=== PATIENT | female | born 1995 | race Caucasian/White ===

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

== ENCOUNTER 2017-10-12 18:38 | Emergency (ER) | payer BC ==
[~2017-10-12] VITALS: Ht 157.5 cm; Wt 60.5 kg
[2017-10-12 18:44] VITALS: BP 128/72; TEMP 97.9
[2017-10-12 19:10] LABS: COLLECTION METHOD CLEAN CATCH
[2017-10-12 19:24] LABS: HEMATOCRIT 39.6 % (35.0-45.0); HEMOGLOBIN 13.4 g/dl (12.0-15.0); MEAN CELL VOLUME 90 fl (80.0-95.0); MEAN CORPUSCULAR HEMOGLOBIN 30 pg (26.0-32.0); MEAN CORPUSCULAR HGB CONC 34 g/dl (33.0-37.0); MEAN PLATELET VOLUME 10.9 fl (7.4-10.4); PLATELET COUNT 185 K/mm3 (130-400); RED BLOOD COUNT 4.42 M/mm3 (4.10-5.30); REDCELL DISTRIBUTION WIDTH-CV 11.9 % (11.5-14.5)
[2017-10-12 19:32] LABS: ALBUMIN 5.1 gm/dL (3.5-5.0); BILIRUBIN,TOTAL 0.5 mg/dL (0.0-1.0); C-REACTIVE PROTEIN 0.7 mg/dL (0.0-0.9); CALCIUM 9.5 mg/dL (8.4-10.2); CREATININE, serum 0.49 mg/dL (0.52-1.25); POTASSIUM 3.8 mmol/L (3.4-5.0); TOTAL PROTEIN 8.8 gm/dL (6.4-8.2)
[2017-10-12 19:45] LABS: PH 6 (5-8); URINE APPEARANCE Clear; URINE BILIRUBIN Negative (NEGATIVE); URINE BLOOD Negative (NEGATIVE); URINE COLOR Yellow; URINE GLUCOSE Negative (NEGATIVE); URINE KETONE Negative (NEGATIVE); URINE LEUKOCYTE ESTERASE Negative (NEGATIVE); URINE NITRATE Negative (NEGATIVE); URINE PROTEIN(semi-quant) Negative (NEGATIVE); URINE UROBILINOGEN Negative (NEGATIVE)
[2017-10-12 19:46] LABS: SQUAMOUS EPITHELIAL 0-2 /hpf
[2017-10-12 20:23] VITALS: PULSE 70
[2017-10-12 21:39] LABS: BAND 10 % (0-10); EOSINOPHIL 3 % (0-4); LYMPHOCYTE 68 % (20.0-51.0); NEUTROPHILS 16 % (42.0-75.2)
[2017-10-12 21:40] LABS: PLATELET ESTIMATE NORMAL (NORMAL)
[2017-10-13] MEDS ORDERED: COLACE 100100 MG/CAP PO (15:42)
[2017-10-13] MEDS ORDERED: PERCOCET 325 MG1 TA2 PO (15:42)
[2017-10-13] MEDS ORDERED: MOTRIN 600600 MG/TAB PO (15:42)
== END 2017-10-12 20:24 | disposition home or self-care (01) ==
LOC: COL.ER 18:38
PROVIDERS: Nurse Practitioner
DX: R10.33 Periumbilical pain (principal); Z90.49 Acquired absence of other specified parts of digestive tract
CPT/HCPCS: J1170; J2405; J7030

== ENCOUNTER 2017-10-13 10:59 | Day surgery (SDC) | payer BC ==
[2017-10-13] VITALS (9 sets, daily range): BP systolic 111–124; BP diastolic 62–78; PULSE 73–99; TEMP 97.8–98.3
[~2017-10-13] VITALS: Ht 157.5 cm; Wt 60.5 kg
[2017-10-13 12:48] LABS: HEMATOCRIT 39.1 % (35.0-45.0); HEMOGLOBIN 13.1 g/dl (12.0-15.0); MEAN CELL VOLUME 91 fl (80.0-95.0); MEAN CORPUSCULAR HEMOGLOBIN 30 pg (26.0-32.0); MEAN CORPUSCULAR HGB CONC 34 g/dl (33.0-37.0); MEAN PLATELET VOLUME 10.8 fl (7.4-10.4); PLATELET COUNT 183 K/mm3 (130-400); RED BLOOD COUNT 4.31 M/mm3 (4.10-5.30); REDCELL DISTRIBUTION WIDTH-CV 11.9 % (11.5-14.5)
[2017-10-13 12:56] LABS: ALBUMIN 4.7 gm/dL (3.5-5.0); BILIRUBIN,TOTAL 0.7 mg/dL (0.0-1.0); CALCIUM 9.3 mg/dL (8.4-10.2); CREATININE, serum 0.55 mg/dL (0.52-1.25); POTASSIUM 3.9 mmol/L (3.4-5.0); TOTAL PROTEIN 8.3 gm/dL (6.4-8.2)
[2017-10-13 12:58] LABS: C-REACTIVE PROTEIN 0.5 mg/dL (0.0-0.9)
[2017-10-13 13:28] LABS: BAND 3 % (0-10); BASOPHIL 2 % (0-2); EOSINOPHIL 1 % (0-4); LYMPHOCYTE 53 % (20.0-51.0); NEUTROPHILS 35 % (42.0-75.2); PLATELET ESTIMATE NORMAL (NORMAL)
[2017-10-13 13:29] LABS: HYPOCHROMIA 1+
[2017-10-13] MEDS ORDERED: MOTRIN 600600 MG/TAB PO (15:42)
[2017-10-13] MEDS ORDERED: PERCOCET 325 MG1 TA2 PO (15:42)
[2017-10-13] MEDS ORDERED: COLACE 100100 MG/CAP PO (15:42)
[2017-10-14 02:23] VITALS: BP 108/52; PULSE 69; TEMP 98.2
[2017-10-14 05:13] VITALS: BP 109/62; PULSE 76; TEMP 98.1
[2017-10-14 09:54] VITALS: BP 102/62; PULSE 73; TEMP 99.4
== END 2017-10-14 13:16 | disposition home or self-care (01) ==
LOC: COL.ER 10:59 → SURG 14:39 → SDCO 14:39
PROVIDERS: Emergency Medicine
DX: K35.80 Unspecified acute appendicitis (principal); Z90.49 Acquired absence of other specified parts of digestive tract
CPT/HCPCS: OP; J0330; J1100; J1170; J1885; J2405; J2550; J2704; J3010; J7030; J7120; Q9967

== ENCOUNTER 2018-09-20 08:15 | Emergency (ER) | payer BC ==
[~2018-09-20] VITALS: Ht 157.5 cm; Wt 65.7 kg
[~2018-09-20 08:15] MED LIST changes: +COLACE 100100 MG/CAP PO; +MOTRIN 600600 MG/TAB PO
[2018-09-20 08:18] VITALS: TEMP 99.1
[2018-09-20 09:10] LABS: BASO # 0.1 (0.0-0.2); BASO % 0.9 % (0.0-2.0); EOS # 0.1 (0.0-0.7); EOS % 1.2 % (0-4.0); GRAN # 3.9 (1.4-6.5); GRAN % 58.1 % (42.2-75.2); HEMATOCRIT 42.1 % (35.0-45.0); HEMOGLOBIN 14.5 g/dl (12.0-15.0); LYMPH # 2.2 (1.2-3.4); MEAN CELL VOLUME 88 fl (80.0-95.0); MEAN CORPUSCULAR HEMOGLOBIN 30 pg (26.0-32.0); MEAN CORPUSCULAR HGB CONC 34 g/dl (33.0-37.0); MEAN PLATELET VOLUME 10.8 fl (7.4-10.4); MONO # 0.4 (0.1-0.6); MONO % 6.5 % (1.7-9.3); PLATELET COUNT 210 K/mm3 (130-400); RED BLOOD COUNT 4.81 M/mm3 (4.10-5.30); REDCELL DISTRIBUTION WIDTH-CV 12.2 % (11.5-14.5)
[2018-09-20 09:18] LABS: ALANINE AMINOTRANSFERASE 10 U/L (9-52); ALBUMIN 4.8 gm/dL (3.5-5.0); ALKALINE PHOSPHATASE 79 U/L (50-136); ANION GAP 11 mmol/L (7-16); AST,SGOT 27 U/L (15-37); BILIRUBIN,TOTAL 0.9 mg/dL (0.0-1.0); BLOOD UREA NITROGEN 10 mg/dL (7-17); CALCIUM 9.6 mg/dL (8.4-10.2); CARBON DIOXIDE 23 mmol/L (22-30); CHLORIDE 105 mmol/L (98-107); CREATININE, serum 0.49 mg/dL (0.52-1.25); GLUCOSE 99 mg/dL (74-106); LIPASE 41 U/L (23-300); POTASSIUM 4.1 mmol/L (3.4-5.0); SODIUM 139 mmol/L (137-145); TOTAL PROTEIN 8.8 gm/dL (6.4-8.2)
[2018-09-20 09:20] LABS: C-REACTIVE PROTEIN < 0.5 mg/dL (0.0-0.9)
[2018-09-20] MEDS ORDERED: ZOFRAN ODT4 MG PO (09:24)
[2018-09-20 11:09] LABS: COLLECTION METHOD CLEAN CATCH
[2018-09-20 11:35] VITALS: BP 109/72; PULSE 72
[2018-09-20 11:43] LABS: MUCOUS Present /lpf; PH 6 (5-8); URINE APPEARANCE Hazy; URINE BACTERIA None Seen /hpf; URINE BILIRUBIN Negative (NEGATIVE); URINE BLOOD Negative (NEGATIVE); URINE COLOR Yellow; URINE GLUCOSE Negative (NEGATIVE); URINE KETONE Negative (NEGATIVE); URINE LEUKOCYTE ESTERASE Negative (NEGATIVE); URINE NITRATE Negative (NEGATIVE); URINE PROTEIN(semi-quant) Negative (NEGATIVE); URINE RBC 0-2 /hpf; URINE UROBILINOGEN Negative (NEGATIVE)
== END 2018-09-20 11:59 | disposition home or self-care (01) ==
LOC: COL.ER 08:15
PROVIDERS: Emergency Medicine
DX: K52.9 Noninfective gastroenteritis and colitis, unspecified (principal); Z90.49 Acquired absence of other specified parts of digestive tract; Z90.89 Acquired absence of other organs
CPT/HCPCS: J2550; J7030

== ENCOUNTER 2019-08-13 17:19 | Emergency (ER) | payer BC ==
[~2019-08-13] VITALS: Ht 157.5 cm; Wt 67.7 kg
[~2019-08-13 17:19] MED LIST changes: +ZOFRAN ODT4 MG PO
[2019-08-13 17:40] VITALS: BP 119/73
[2019-08-13 19:19] LABS: COLLECTION METHOD CLEAN CATCH
[2019-08-13 19:27] LABS: MUCOUS Present /lpf; PH 6 (5-8); URINE APPEARANCE Hazy; URINE BACTERIA None Seen /hpf; URINE BILIRUBIN Negative (NEGATIVE); URINE BLOOD Negative (NEGATIVE); URINE COLOR Yellow; URINE GLUCOSE Negative (NEGATIVE); URINE KETONE 2+ (NEGATIVE); URINE LEUKOCYTE ESTERASE Trace (NEGATIVE); URINE NITRATE Negative (NEGATIVE); URINE PROTEIN(semi-quant) Negative (NEGATIVE); URINE RBC 0-2 /hpf
[2019-08-13 20:38] VITALS: PULSE 116; TEMP 98.4
[2019-08-13] MEDS ORDERED: TAMIFLU 75MG75 MG PO (20:41)
== END 2019-08-13 20:57 | disposition home or self-care (01) ==
LOC: COL.ER 17:19
PROVIDERS: Emergency Medicine
DX: J11.1 Influenza due to unidentified influenza virus with other respiratory manifestations (principal); Z90.49 Acquired absence of other specified parts of digestive tract

== ENCOUNTER 2020-02-17 07:38 | Inpatient (IN) | payer BC ==
[~2020-02-17] VITALS: Ht 154.9 cm; Wt 76.8 kg
[2020-02-17] VITALS (35 sets, daily range): BP systolic 104–151; BP diastolic 56–91; PULSE 59–140; TEMP 98.4–98.8
[~2020-02-17 07:38] MED LIST changes: +TAMIFLU 75MG75 MG PO
--- NOTE | 2020-02-17 07:45 | NUR ---
Pt here for scheduled, elective induction of labor. Pt oriented to room and to EFM. 39.1 weeks gestation, G2L1. GBS negative. Pt to EFM. IV started to left wrist x 1 attempt, blood drawn from IV site and then LR infusing without difficulty. Assessment complete and consents signed. complicated with anemia, pt taking po iron daily. FHR reactive, irregular contractions noted. SVE: 350/-3. 0830: Pitocin started at 2mu per order.
[2020-02-17] MEDS ORDERED: NATURAL IRON65 MG PO (08:13)
[2020-02-17] MEDS ORDERED: PRENATAL (08:13)
--- NOTE | 2020-02-17 08:48 | NUR ---
Dr Hand here and at bedside. US performed, vertex position. SVE: /-3, AROM, clear fluid noted.
[2020-02-17 08:52] LABS: BASO # 0.1 (0.0-0.2); BASO % 0.7 % (0.0-2.0); EOS # 0.1 (0.0-0.7); EOS % 0.8 % (0-4.0); GRAN # 4.3 (1.4-6.5); GRAN % 57.2 % (42.2-75.2); HEMATOCRIT 33.2 % (37.0-47.0); HEMOGLOBIN 10.6 g/dl (12.5-16.0); LYMPH # 2.5 (1.2-3.4); LYMPH % 33.6 % (20.0-51.0); MEAN CELL VOLUME 85 fl (80.0-100.0); MEAN CORPUSCULAR HEMOGLOBIN 27 pg (27.0-31.0); MEAN CORPUSCULAR HGB CONC 32 g/dl (33.0-37.0); MEAN PLATELET VOLUME 12.4 fl (7.4-10.4); MONO # 0.5 (0.1-0.6); PLATELET COUNT 149 K/mm3 (130-400); RED BLOOD COUNT 3.93 M/mm3 (4.10-5.30); REDCELL DISTRIBUTION WIDTH-CV 14.8 % (11.5-14.5)
--- NOTE | 2020-02-17 09:55 | NUR ---
Pt requesting epidural. [employer] here. IVF bolus started. 1032:Pt up to bathroom, voids. [employer] here and at beside. Epidural placed, single shot given at 1048. Pt tolerated well. See anesthesia notes. 1055:Pt repositoned to left side.
--- NOTE | 2020-02-17 12:00 | NUR ---
Dr Hand called and updated on pt status. Will notify when needed for delivery. 1215:Richardson catheter placed. SVE: /-1.
--- NOTE | 2020-02-17 12:50 | NUR ---
Pt calls out and states she is feeling lots of pressure and needs to push. This nurse at bedside. SVE: complete +2. Dr Hand called at 1253, on his way to hospital for delivery. Richardson catheter removed and pt prepped for delivery. 1305:Dr Hand here and at beside. 1308:Pt begins to push with contractions. Pushes for approximately 15 minutes, not progress made. Pt placed in Leg leg stirrups at this time to attempt to rotate head to an OA position. 1331:pt calls out feeling pressure. Dr Hand at bedside, SVE: attempts to push. 1336:Pt to right leg stirrup and will attempt to push in about 15minutes.
--- NOTE | 2020-02-17 14:00 | NUR ---
Pt vomiting. Dr Hand here. Pt begins to push with contractions. Recurrent variable decels noted with every contraction. FHR decreases to 90-110 bpm for 30-[address] Hand at nurse's station and reviewing monitor strip. 1430:Dr Hand here and at bedside, pushes with pt x1. Will continue to push, no new orders.
--- NOTE | 2020-02-17 14:50 | NUR ---
Physician here and pt prepped for delivery and pt continues to push. 1455: straight catheter used by Dr jon, small amount of urine noted. 1510: of infants head and shoulders. to mothers abd and in care of Gabriel Cam RN. 1514:Spontaneous delivery of placenta. LR with 333ml/hr without difficulty. 2nd degree laceration repaired by physician. fundus firm, bleeding WNL. Labia swollen, ice pack in place.
--- NOTE | 2020-02-17 17:35 | NUR ---
Pt up to bathroom with assist. Voids 500ml. Fundus is firm and bleeding WNL. New pads and ice pack in place. New gown on. Pt to wheelchair and taken to room 208. at bedside. Pt c/o pain, po motrin given. See EMAR.
[2020-02-18 03:00] VITALS: BP 102/51; PULSE 78; TEMP 99.1
[2020-02-18] MEDS ORDERED: IBU600 MG PO (08:35)
[2020-02-18] MEDS ORDERED: PERCOCET 325 MG1 TA2 PO (08:35)
[2020-02-18 08:43] LABS: HEMATOCRIT 26.7 % (37.0-47.0); HEMOGLOBIN 8.5 g/dl (12.5-16.0)
[2020-02-18 09:30] VITALS: BP 100/50; PULSE 85; TEMP 97.8
--- NOTE | 2020-02-18 10:15 | NUR ---
1015- Dr Schwab at bedside per this RN request to evaluate Pts left labia. states that it is nice and pink but there may be a hematoma under the swelling. Encourages ice and compression as tolerated.
[2020-02-18 21:00] VITALS: BP 114/56; PULSE 80; TEMP 98
[2020-02-19 07:49] VITALS: BP 121/69; PULSE 74; TEMP 97.8
== END 2020-02-19 12:47 | disposition home or self-care (01) | DRG 807 ==
LOC: LDR 07:38 → LDRO 07:38 → LDR 07:54 → OB 17:51
PROVIDERS: ADMIT Obstetrics & Gynecology
PROC: 10E0XZZ Delivery of Products of Conception, External Approach (ICD-10-PCS; principal; 2020-02-17)
PROC: 0KQM0ZZ Repair Perineum Muscle, Open Approach (ICD-10-PCS; 2020-02-17)
PROC: 10907ZC Drainage of Amniotic Fluid, Therapeutic from Products of Conception, Via Natural or Artificial Opening (ICD-10-PCS; 2020-02-17)
DX: O99.02 Anemia complicating childbirth (principal); Z37.0 Single live birth; O70.1 Second degree perineal laceration during delivery; Z3A.39 39 weeks gestation of pregnancy
CPT/HCPCS: J2405; J2590; J2795; J7120